=== PATIENT | female | born 1960 | race Caucasian/White ===

== ENCOUNTER → 2017-06-11 | Outpatient (CLI) | payer BC ==
[~2017-06-11] MED LIST: ATOR10TA88 PO; POTA1080 PO; SERT1TAB68 PO
[2017-06-11 17:42] LABS: BLOOD UREA NITROGEN 12 mg/dl (7-18); BUN/CREATININE RATIO 17.7 (10-20); CALCIUM 9.5 mg/dl (8.5-10.1); CARBON DIOXIDE 27 mmol/L (21-32); CHLORIDE 107 mmol/L (98-107); CHOLESTEROL 203 mg/dl (0-200); CREATININE 0.65 mg/dl (0.60-1.20); GLUCOSE 116 mg/dl (70-99); POTASSIUM 4.2 mmol/L (3.5-5.1); SODIUM 140 mmol/L (136-145)
[2017-06-11 17:45] LABS: CHOLESTEROL/HDL RATIO 4.2; HDL CHOLESTEROL 48 mg/dl; LDL CHOLESTEROL CALCULATED 124 mg/dl; TRIGLYCERIDES 154 mg/dl (0-150); VERY LOW DENSITY LIPOPROT CALC 31 mg/dl
== END | disposition home or self-care (01) ==
LOC: C.LABPVFM 11:08
PROVIDERS: ATTEND Nurse Practitioner
DX: E78.5 Hyperlipidemia, unspecified (principal); F32.9 Major depressive disorder, single episode, unspecified

== ENCOUNTER → 2017-08-17 | Outpatient (CLI) | payer BC ==
[~2017-08-17] MED LIST changes: +ATOR10TA82 PO; -ATOR10TA88 PO
--- NOTE | 2017-08-17 12:16 | DIAGNOSTIC IMAGING REPORT ---
KUB CLINICAL HISTORY: Nephrolithiasis. Right flank pain. FINDINGS: 2 AP supine abdominal radiographs are compared to study dated 09/25/2016 and correlated with abdominal CT dated 10/06/2013. A 6 mm calculus projects over the left renal pelvis. At least 4 additional small calculi project over the left kidney. A punctate calculus is suggested projecting over the lower pole the right kidney. There is no evidence of ureteral stone. Phleboliths are again seen along the course of left gonadal vein and in the pelvis. No bowel obstruction is identified. There is mild to moderate colonic fecal retention. The skeletal structures are osteopenic. The bony structures appear intact. IMPRESSION: 1. Numerous nonobstructive left renal calculi identified. A 6 mm calculus likely projects over the left renal pelvis. 2. A single punctate nonobstructing calculus is suggested in the right kidney. There is no convincing evidence of ureteral stone. Electronically signed by: Macho Adam M.D. 08/17/2017 12:15 PM Dictated Date/Time: 08/17/2017 12:11 PM
== END | disposition home or self-care (01) ==
LOC: C.RAD 11:00
PROVIDERS: ATTEND Urology
DX: N20.0 Calculus of kidney (principal); R39.9 Unspecified symptoms and signs involving the genitourinary system

== ENCOUNTER → 2017-08-19 | Outpatient (CLI) | payer BC ==
[~2017-08-19] MED LIST changes: +OPTIRAY 320 IV PRN
--- NOTE | 2017-08-19 09:21 | DIAGNOSTIC IMAGING REPORT ---
CT ABD/PELVIS COMBO CLINICAL HISTORY: N20.0 [id number] hematuria COMPARISON STUDY: 10/06/2013 TECHNIQUE: Unenhanced images were obtained through the abdomen and pelvis. The patient was injected with 50 cc of Optiray 320. After 5 minute delay, the patient was rescanned in a dynamic helical fashion during the additional administration of 70 cc of Optiray 320. A dose lowering technique was utilized adhering to the principles of ALARA. CT DOSE: 1798.94 mGycm FINDINGS: Lower chest: There are mild basilar atelectatic changes Liver: The contrast-enhanced liver is normal in size, contour, and attenuation. There is no intrahepatic biliary ductal dilatation. The hepatic veins and portal veins are patent. Gallbladder: Unremarkable. Spleen: Normal in size and attenuation. Pancreas: Unremarkable. Adrenal glands: Unremarkable. Kidneys: At least 7 left renal calculi are visualized. The largest is located within the upper pole measuring 7 mm. 2 right renal calculi are visualized. The largest is located within the lower pole measuring 4 mm. No renal or ureteral lesions are visualized. Bowel: There are no transition zones indicate bowel obstruction. No acute inflammatory changes are visualized. Peritoneum: There is no intraperitoneal free air or abdominal ascites. Vasculature: The abdominal aorta is normal in course and caliber. Adenopathy: None. Pelvic viscera: The bladder, and pelvic viscera are unremarkable. Skeletal structures: No destructive osseous lesions are seen. IMPRESSION: 1. Bilateral nephrolithiasis 2. No ureteral or bladder calculi identified 3. No renal masses identified. No uroepithelial lesions identified Electronically signed by: Kevin Wan M.D. 08/19/2017 9:20 AM Dictated Date/Time: 08/19/2017 9:11 AM
== END | disposition home or self-care (01) ==
LOC: C.CTS 08:37
PROVIDERS: ATTEND Nurse Practitioner Adult Health
DX: N20.0 Calculus of kidney (principal); R31.9 Hematuria, unspecified

== ENCOUNTER → 2017-09-29 | Outpatient (CLI) | payer BC, OTHER ==
[~2017-09-29] MED LIST changes: +BIOT1CAP8 PO; -OPTIRAY 320 IV PRN; +POTASSIUM CITRATE PO; +SERT-234 PO
--- NOTE | 2017-09-29 11:28 | DIAGNOSTIC IMAGING REPORT ---
KUB CLINICAL HISTORY: Nephrolithiasis. Right-sided pain. COMPARISON STUDY: KUB August 27, [address] of the abdomen and pelvis August 19, 2017. FINDINGS: Pelvic calcifications are unchanged and likely reflect phleboliths. No renal calculi are noted, including a 6 mm calculus within the upper pole of the left kidney. A 7 mm calcification projects over the left renal pelvis. Bowel gas pattern is normal. Calcifications along the left lateral aspect of the lower lumbar spine shown to represent phleboliths on prior CT. IMPRESSION: 1. Bilateral nephrolithiasis. Suspected 7 mm left renal pelvis calculus. 2. No right ureteral calculi identified. Electronically signed by: Humberto Maki M.D. 09/29/2017 11:26 AM Dictated Date/Time: 09/29/2017 11:21 AM
[2017-09-29 14:25] LABS: BASO % 0.1 %; BASO ABS # 0.01 K/uL (0-0.2); EOS % 0.7 %; EOS ABS # 0.05 K/uL (0-0.5); HEMATOCRIT 39.3 % (37-47); HEMOGLOBIN 13.4 g/dL (12.0-16.0); IG# 0.02 K/uL (0.00-0.02); LYMPH % 13.4 %; LYMPH ABS # 0.94 K/uL (1.2-3.4); MEAN CELL VOLUME 84.7 fL (80-100); MEAN CORPUSCULAR HEMOGLOBIN 28.9 pg (25-34); MEAN CORPUSCULAR HGB CONC 34.1 g/dl (32-36); MEAN PLATELET VOLUME 9.1 fL (7.4-10.4); MONO % 5.7 %; NEUT % 79.8 %; NEUT ABS # 5.61 K/uL (1.4-6.5); PLATELET COUNT 198 K/uL (130-400); RED CELL DISTRIBUTION WIDTH CV 12.6 % (11.5-14.5); RED CELL DISTRIBUTION WIDTH SD 38.8 fL (36.4-46.3); WHITE BLOOD COUNT 7.03 K/uL (4.8-10.8)
[2017-09-29 14:42] LABS: BLOOD UREA NITROGEN 13 mg/dl (7-18); CALCIUM 9.8 mg/dl (8.5-10.1); CARBON DIOXIDE 27 mmol/L (21-32); CREATININE 0.52 mg/dl (0.60-1.20); GLUCOSE 113 mg/dl (70-99); POTASSIUM 4.1 mmol/L (3.5-5.1); SODIUM 142 mmol/L (136-145)
== END | disposition home or self-care (01) ==
LOC: C.RAD 10:48
PROVIDERS: ATTEND Nurse Practitioner Adult Health
DX: N20.0 Calculus of kidney (principal); R10.9 Unspecified abdominal pain

== ENCOUNTER → 2017-09-30 | Outpatient (CLI) | payer BC, OTHER ==
--- NOTE | 2017-09-30 15:36 | DIAGNOSTIC IMAGING REPORT ---
IVP W/OR W/O TOMOGRAMS CLINICAL HISTORY: N20.0 Nephrolithiasis no latex allergy, no iodine allergy, not di COMPARISON STUDY: KUB 09/29/2017. FINDINGS: Service Secretary image again demonstrates bilateral renal calculi with the largest in the upper pole of the left kidney measuring 5 mm. Multiple stable calcifications in the deep pelvis consistent with phleboliths. There is also stable phlebolith overlying the left L5 transverse process. There is an irregular 8 mm stone within the left ureteropelvic junction which is new from the prior studies. However, this does not result significant obstruction. There is no hydronephrosis. The right ureter appears to be normal in course and caliber. No additional filling defects identified within the renal collecting systems. The bladder appears unremarkable. Mild pelvic floor collapse. IMPRESSION: 1. An irregular 8 mm nonobstructing stone within the left ureteropelvic junction which is new from the prior studies. No associated hydronephrosis. 2. Bilateral nephrolithiasis. 3. Mild pelvic floor collapse. Electronically signed by: Rodo Carranza M.D. 09/30/2017 3:35 PM Dictated Date/Time: 09/30/2017 3:31 PM
== END | disposition home or self-care (01) ==
LOC: C.RAD 14:14
PROVIDERS: ATTEND Urology
DX: N20.0 Calculus of kidney (principal); N20.1 Calculus of ureter

== ENCOUNTER → 2017-10-01 | Day surgery (SDC) | payer BC, OTHER ==
--- NOTE | 2017-09-29 13:54 | DIAGNOSTIC IMAGING REPORT ---
CHEST 2 VIEWS ROUTINE CLINICAL HISTORY: Preoperative evaluation. Nephrolithiasis. COMPARISON STUDY: Chest radiograph August 20, 2013. FINDINGS: Lung volumes are normal. Mild bibasilar opacities suggest atelectasis. There is no consolidation to suggest pneumonia. There is no evidence for pulmonary edema. Mild cardiomegaly is noted. IMPRESSION: 1. No acute cardiopulmonary findings. 2. Mild cardiomegaly. Electronically signed by: Humberto Maki M.D. 09/29/2017 1:53 PM Dictated Date/Time: 09/29/2017 1:51 PM
[2017-09-30 11:09] VITALS: Ht 165.1 cm; Wt 72.7 kg
[~2017-10-01] VITALS: Ht 165.1 cm; Wt 72.7 kg
[~2017-10-01] MED LIST changes: +CIPROFLOXACIN 400MG / D5W IV SCH; +DEXAMETHASONE SOD INJ 4 MG/ML VIAL ONE; +FENTANYL CITRATE INJ 50 MCG/1 ML 2 ML VIAL ONE; +LACTATED RINGER'S 1000ML 1,000 ML IV SCH; +LIDOCAINE HCL 2% 2 ML VIAL (20MG/ML) ONE; +MIDAZOLAM HCL 1 MG/ML 2ML VIAL ONE; +ONDANSETRON INJ 2 MG/ML 2 ML VIAL ONE; -POTA1080 PO; +PROPOFOL IV EMULSION 10 MG/ML 20 ML VIAL IV ONE; -SERT1TAB68 PO
[2017-10-01 09:41] VITALS: BP 151/83; PULSE 54; TEMP 36.6; O2SAT 95
--- NOTE | 2017-10-04 10:41 | EDITING REQUIRED CODING QUERY ---
CODING CLARIFICATION Please provide a diagnosis/reason below for the reason of the cancelled procedure: PROCEDURE CANCELLED DUE TO: NSAID / antiplatelet use Thank you for your assistance, Karen Dickerson - [employer]
== END | disposition home or self-care (01) ==
LOC: X.SURG 09:34
PROVIDERS: ATTEND Urology
DX: N20.0 Calculus of kidney (principal); N39.41 Urge incontinence; Z53.09 Procedure and treatment not carried out because of other contraindication; F32.9 Major depressive disorder, single episode, unspecified; E78.5 Hyperlipidemia, unspecified; Z87.442 Personal history of urinary calculi; Z87.440 Personal history of urinary (tract) infections; Z86.32 Personal history of gestational diabetes; Z87.891 Personal history of nicotine dependence; Z80.0 Family history of malignant neoplasm of digestive organs; Z82.49 Family history of ischemic heart disease and other diseases of the circulatory system; Z83.3 Family history of diabetes mellitus; Z80.42 Family history of malignant neoplasm of prostate

== ENCOUNTER → 2017-10-08 | Day surgery (SDC) | payer BC, OTHER ==
[2017-10-05 07:35] VITALS: Ht 165.1 cm; Wt 72.7 kg
[~2017-10-08] VITALS: Ht 165.1 cm; Wt 72.7 kg
[~2017-10-08] MED LIST changes: +ATROPINE SULFATE 0.1 MG/ML 5ML SYR IV PRN; +DEXAMETHASONE SOD INJ 4 MG/ML VIAL IV PRN; +EpHEDrine SULFATE INJ 50 MG/ML AMP IV PRN; +EpHEDrine SULFATE INJ 50 MG/ML AMP ONE; +FENTANYL CITRATE INJ 50 MCG/1 ML 2 ML VIAL IV PRN; +KETOROLAC TROMETHAMINE 30 MG/ML VIAL IV. PRN; +LABETALOL HCL IV 5 MG/ML 20ML IV PRN; -LACTATED RINGER'S 1000ML 1,000 ML IV SCH; +METOCLOPRAMIDE HCL INJ 5 MG/ML 2 ML VIAL IV PRN; +MoRPHine SULFATE 10 MG/ML CARP/VIAL IV PRN; +ONDANSETRON INJ 2 MG/ML 2 ML VIAL IV PRN; +OXYC-57 PO; +OXYCODONE/ACETAMINOPHEN 5-325 TAB PO PRN; +PHEN-775 PO; +PHENYLEPHRINE 100MCG/ML 5ML SYR IV PRN; +SODIUM CHLORIDE 0.9% INJ 10 ML VIAL ONE
[2017-10-08] MEDS: LACTATED RINGER'S 1000ML 1,000 ML IV SCH ×2 (07:40→10:16)
--- NOTE | 2017-10-08 08:26 | History & Physical Bridge - SC ---
H&P Re-Evaluation Bridge Note: I have examined the patient, reviewed the History & Physical and in the interval since the performance of the History & Physical I have noted the following changes of clinical significance: No changes noted
--- NOTE | 2017-10-08 08:35 | Discharge Instructions ---
Discharge Instructions Date of Service Oct 08, 2017. Admission Reason for Admission: Stones Discharge Discharge Diagnosis / Problem: Stone Discharge Goals Goal(s): Decrease discomfort, Improve function Activity Recommendations Activity Limitations: resume your previous activity Lifting Limitations: gradually increase as tolerated Exercise/Sports Limitations: gradually increase as tolerated Shower/Bathe: no limitations . Instructions / Follow-Up Instructions / Follow-Up May have blood in urine. May have flank pain or bruising. May pass small fragments. Call if any issues. Current Hospital Diet Patient's current hospital diet: Discharge Diet Recommended Diet: Regular Diet Procedures Procedures Performed: L Eswl Pending Studies Studies pending at discharge: no Medical Emergencies . Who to Call and When: Medical Emergencies: If at any time you feel your situation is an emergency, please call 911 immediately. . Non-Emergent Contact Non-Emergency issues call your: Primary Care Provider, Urologist Call Non-Emergent contact if: you have a fever, temperature is above 101, temperature is above 101.5, your pain is not controlled, your pain is worsening . . "Provider Documentation" section prepared by Luis Manuel Crowley,. . VTE Core Measure Inpt VTE Proph given/why not?: SCD's
--- NOTE | 2017-10-08 09:50 | [facility] Operative Report ---
Operative Report Operative Date Oct 08, 2017. Pre-Operative Diagnosis L Stone Post-Operative Diagnosis Same Procedure(s) Performed L ESWL Surgeon Keo Desizing Machine Operator Surgeon(s) None Estimated Blood Loss None Findings Left stone visualized on imaging. Specimens None Anesthesia General Complication(s) None Disposition Recovery Room / PACU Indications Symptomatic left stone. Risks and benefits discussed at length. Description of Procedure Patient was consented and brought back to the operating room. Patient was placed under anesthesia in the supine position. Patient was prepped and draped in the regular sterile fashion. A time out was completed. With the time out completed, The patient was assessed with fluoroscopy. The stone was identified and position was triangulated. At this point, the shock waves commenced. The stone was monitored throughout the process with fluoroscopy to assess progression and maintain position. The stone was pulverized with 2500 shocks at a maximum voltage of 5 with a total fluoroscopic time of 3:06. The stone appeared to fragment, but unable to determine if completely pulverized. With the stone treated with maximum number of shocks, the procedure ended. The patient was cleaned, aroused from anesthesia, and transferred to the pacu in stable condition having tolerated the procedure well with no complications. I was present and participated in all aspects of the procedure. The patient will be monitored in the PACU until transferred. Will plan for imaging as scheduled to determine success of treatment. I attest to the content of the Intraoperative Record and any orders documented therein. Any exceptions are noted below.
--- NOTE | 2017-10-08 10:32 | Anesthesia Progress Nt - [facility] ---
Anesthesia Post Op Note Date & Time Oct 08, 2017 at 10:32 Vital Signs Pain Intensity: 0 Vital Signs Past 12 Hours Date Time Temp Pulse Resp B/P (MAP) Pulse Ox O2 Delivery O2 Flow Rate FiO2 10/08/17 10:21 36.7 63 14 127/77 96 Room Air 10/08/17 10:21 127/77 10/08/17 10:21 127/77 10/08/17 10:20 66 14 10/08/17 10:20 66 14 10/08/17 10:20 64 14 95 10/08/17 10:20 64 14 95 10/08/17 10:16 139/80 10/08/17 10:16 139/80 10/08/17 10:15 65 14 10/08/17 10:15 66 14 96 10/08/17 10:15 65 14 10/08/17 10:15 66 14 96 10/08/17 10:11 126/71 10/08/17 10:11 126/71 10/08/17 10:10 59 14 100 10/08/17 10:10 60 14 10/08/17 10:10 60 14 10/08/17 10:10 59 14 100 10/08/17 10:06 122/69 10/08/17 10:06 122/69 10/08/17 10:05 60 15 99 10/08/17 10:05 60 15 10/08/17 10:05 60 15 10/08/17 10:05 60 15 99 10/08/17 10:01 126/70 10/08/17 10:01 126/70 10/08/17 10:00 60 14 10/08/17 10:00 60 14 99 10/08/17 10:00 60 14 99 10/08/17 10:00 60 14 10/08/17 09:56 135/73 10/08/17 09:56 37.3 65 16 135/73 98 Mask 6 10/08/17 09:56 135/73 10/08/17 07:23 36.6 56 16 146/89 (108) 96 Room Air Notes Mental Status: alert / awake / arousable, participated in evaluation Pt Amnestic to Procedure: Yes Nausea / Vomiting: adequately controlled Pain: adequately controlled Airway Patency, RR, SpO2: stable & adequate BP & HR: stable & adequate Hydration State: stable & adequate Anesthetic Complications: no major complications apparent
[2017-10-08 10:42] VITALS: TEMP 36.4
[2017-10-08 10:56] VITALS: BP 138/82; PULSE 60; O2SAT 98
== END | disposition home or self-care (01) ==
LOC: X.SURG 07:12
PROVIDERS: ATTEND Urology
DX: N20.1 Calculus of ureter (principal); N20.0 Calculus of kidney; N39.41 Urge incontinence; R39.9 Unspecified symptoms and signs involving the genitourinary system; F32.9 Major depressive disorder, single episode, unspecified; E78.5 Hyperlipidemia, unspecified; Z98.890 Other specified postprocedural states; Z90.710 Acquired absence of both cervix and uterus; Z90.89 Acquired absence of other organs; Z98.51 Tubal ligation status; Z80.0 Family history of malignant neoplasm of digestive organs; Z82.49 Family history of ischemic heart disease and other diseases of the circulatory system; Z83.3 Family history of diabetes mellitus; Z88.1 Allergy status to other antibiotic agents; Z87.891 Personal history of nicotine dependence

== ENCOUNTER → 2017-10-26 | Outpatient (CLI) | payer BC, OTHER ==
[~2017-10-26] MED LIST changes: -ATROPINE SULFATE 0.1 MG/ML 5ML SYR IV PRN; -CIPROFLOXACIN 400MG / D5W IV SCH; -DEXAMETHASONE SOD INJ 4 MG/ML VIAL IV PRN; -DEXAMETHASONE SOD INJ 4 MG/ML VIAL ONE; -EpHEDrine SULFATE INJ 50 MG/ML AMP IV PRN; -EpHEDrine SULFATE INJ 50 MG/ML AMP ONE; -FENTANYL CITRATE INJ 50 MCG/1 ML 2 ML VIAL IV PRN; -FENTANYL CITRATE INJ 50 MCG/1 ML 2 ML VIAL ONE; -KETOROLAC TROMETHAMINE 30 MG/ML VIAL IV. PRN; -LABETALOL HCL IV 5 MG/ML 20ML IV PRN; -LIDOCAINE HCL 2% 2 ML VIAL (20MG/ML) ONE; -METOCLOPRAMIDE HCL INJ 5 MG/ML 2 ML VIAL IV PRN; -MIDAZOLAM HCL 1 MG/ML 2ML VIAL ONE; -MoRPHine SULFATE 10 MG/ML CARP/VIAL IV PRN; -ONDANSETRON INJ 2 MG/ML 2 ML VIAL IV PRN; -ONDANSETRON INJ 2 MG/ML 2 ML VIAL ONE; -OXYCODONE/ACETAMINOPHEN 5-325 TAB PO PRN; -PHEN-775 PO; -PHENYLEPHRINE 100MCG/ML 5ML SYR IV PRN; -PROPOFOL IV EMULSION 10 MG/ML 20 ML VIAL IV ONE; -SODIUM CHLORIDE 0.9% INJ 10 ML VIAL ONE
--- NOTE | 2017-10-26 18:24 | DIAGNOSTIC IMAGING REPORT ---
KUB HISTORY: Follow-up study in a patient with nephrolithiasis N20.0 [id number] COMPARISON: IVP 09/30/2017, CT 08/19/2017, KUB 08/17/2017. FINDINGS: The bowel gas pattern is non-obstructive. Moderate stool volume of the cecum. There is no organomegaly. Resolution of the previous noted left UPJ calculus. Multiple left-sided renal calculi are again seen measuring up to 5 mm the superior pole left kidney. Right renal shadow is partially obscured by bowel gas. Nephrolithiasis of the superior pole right kidney redemonstrated. No definite ureteral calculi are identified. Punctate calcifications projecting over the left L5 transverse process and upper sacrum are unchanged suggesting vascular calcifications. Probable phleboliths of the pelvis. No pneumoperitoneum or pneumatosis. No fracture. IMPRESSION: 1. Unchanged bilateral nephrolithiasis, left greater than right without ureteral calculi identified. 2. The previously noted left ureteropelvic junction calculus is not identified. Electronically signed by: Primitivo Anne M.D. 10/26/2017 6:22 PM Dictated Date/Time: 10/26/2017 6:19 PM
== END | disposition home or self-care (01) ==
LOC: C.RAD 17:30
PROVIDERS: ATTEND Urology
DX: N20.0 Calculus of kidney (principal)